=== PATIENT | female | born 1965 | race African-American/Black ===

== ENCOUNTER 2022-12-03 12:58 | Emergency (ER) | payer BC ==
[~2022-12-03] VITALS: Ht 165.1 cm; Wt 82.0 kg
[2022-12-03 14:48] LABS: CHLORIDE 98 mEq/L (98-107)
[2022-12-03 14:51] LABS: BASOPHILS % 0.5 % (0.0-2.0); EOSINOPHILS % 1.2 % (0.0-5.0); HEMATOCRIT. 37.7 % (36.0-48.0); HEMOGLOBIN. 13.2 g/dL (12.0-16.0); LYMPHOCYTES % 14.7 % (20.0-50.0); MEAN CORPUSCULAR VOLUME 94.7 fL (81.0-99.0); MONOCYTES % 8.2 % (2.0-8.0); NEUTROPHILS % 75.4 % (40.0-76.0); PLATELET 278 x1000/uL (130-400); RED BLOOD CELL COUNT 3.98 mill/uL (4.2-5.4); RED CELL DISTRIBUTION WIDTH 14.4 % (11.6-14.6)
[2022-12-03 14:56] LABS: INR 1.3; PROTHROMBIN TIME 14.2 sec (9.6-11.0)
[2022-12-03 15:00] LABS: ETHANOL BLOOD < 10 mg/dL
[2022-12-03 22:21] LABS: CLARITY URINE TURBID (CLEAR); COLOR URINE ORANGE (YELLOW); KETONES URINE 2+ (NEGATIVE); LEUKOCYTE ESTERASE URINE 2+ (NEGATIVE); NITRITE URINE POSITIVE (NEGATIVE); OCCULT BLOOD URINE 3+ (NEGATIVE); PROTEIN URINE 2+ (NEGATIVE); SPECIFIC GRAVITY URINE 1.038 (1.005-1.030)
[2022-12-03 22:31] LABS: *AMPHETAMINES SCREEN URINE NEGATIVE (NEGATIVE); *BARBITURATES SCREEN URINE NEGATIVE (NEGATIVE); *BENZODIAZEPINES SCREEN URINE NEGATIVE (NEGATIVE); *COCAINE SCREEN URINE NEGATIVE (NEGATIVE); CANNABINOID URINE SCREEN PRESUMTIVE POSITIVE (NEGATIVE); METHADONE URINE SCREEN NEGATIVE (NEGATIVE); OPIATES URINE SCREEN NEGATIVE (NEGATIVE); PHENCYCLIDINE URINE SCREEN NEGATIVE (NEGATIVE)
[2022-12-03 23:23] VITALS: BP 102/72
[2022-12-04] MEDS ORDERED: SULF1TAB48 MT (01:14)
== END 2022-12-04 01:30 | disposition home or self-care (01) ==
LOC: ER 12:58
DX: N93.8 Other specified abnormal uterine and vaginal bleeding (principal); Z00.00 Encounter for general adult medical examination without abnormal findings; I10 Essential (primary) hypertension; Z90.710 Acquired absence of both cervix and uterus
CPT/HCPCS: 36415; 74176; 80053; 80305; 80320; 81003; 83605; 85025; 87077; 87186; 99284; G0480

== ENCOUNTER 2023-11-16 12:34 | Inpatient (IN) | payer BC ==
[~2023-11-16] VITALS: Ht 165.1 cm; Wt 72.6 kg
[~2023-11-16 12:34] MED LIST: ACET-2708 MT; AMOX1TAB16 MT; SULF1TAB48 MT
[2023-11-16] MEDS: SODIUM CHLORIDE 0.9% 1000ML BAG (SEPSIS BOLUS) IV ONE (16:29)
[2023-11-16] MEDS: VANCOMYCIN 1G PREMIX 200 ML IV SCH (16:29)
[2023-11-16 16:55] LABS: BASOPHILS % 0.6 % (0.0-2.0); EOSINOPHILS % 3.7 % (0.0-5.0); HEMATOCRIT. 31.5 % (36.0-48.0); HEMOGLOBIN. 10.4 g/dL (12.0-16.0); LYMPHOCYTES % 17.2 % (20.0-50.0); MEAN CORPUSCULAR HGB CONC 32.9 g/dL (31.0-37.0); MEAN CORPUSCULAR VOLUME 94.3 fL (81.0-99.0); MEAN PLATELET VOLUME 8.1 fl (7.4-10.4); MONOCYTES % 8.2 % (2.0-8.0); NEUTROPHILS % 70.3 % (40.0-76.0); PLATELET 329 x1000/uL (130-400); RED BLOOD CELL COUNT 3.34 mill/uL (4.2-5.4); RED CELL DISTRIBUTION WIDTH 18.6 % (11.6-14.6); WHITE BLOOD COUNT 8.8 x1000/uL (4.5-11.0)
[2023-11-16 17:05] LABS: INR 1.2; PROTHROMBIN TIME 12.7 sec (9.6-11.0)
[2023-11-16 17:38] LABS: LACTIC ACID 3.7 mmol/L (0.4-2.0)
[2023-11-16 17:39] LABS: ALANINE AMINOTRANSFERASE 10 IU/L (10-49); ALBUMIN 3.5 g/dL (3.2-4.8); ASPARTATE AMINOTRANSFERASE 20 IU/L (<34); BILIRUBIN TOTAL 0.2 mg/dL (0.1-1.0); CARBON DIOXIDE 25 mEq/L (21-32); CHLORIDE 102 mEq/L (98-107); CREATININE 0.8 mg/dL (0.6-1.0); GLUCOSE 120 mg/dL (70-105); POTASSIUM 3.8 mEq/L (3.5-5.1); PROTEIN TOTAL 9.3 g/dL (6.0-8.3); SODIUM 135 mEq/L (136-145); UREA NITROGEN BLOOD 7 mg/dL (9-23)
[2023-11-16] MEDS: PIPERACILLIN/TAZO 3.375G/50ML 50 ML IV SCH (21:22)
[2023-11-17] VITALS: BP 143/77; PULSE 76; RESP 18; TEMP 97.7
[2023-11-17] MEDS ORDERED: DOCUSATE SODIUM 100MG CAPSULE PO PRN (02:30)
[2023-11-17] MEDS ORDERED: MAGNESIUM/ALUMINUM HYDROXIDE/SIMETHICONE 30ML UDC PO PRN (02:30)
[2023-11-17] MEDS ORDERED: ZOLPIDEM TARTRATE 5MG TABLET PO PRN (02:30)
[2023-11-17] MEDS: ACETAMINOPHEN 325MG TABLET PO SCH (03:46)
[2023-11-17 08:00] VITALS: BP 108/63; PULSE 75; RESP 18; TEMP 97.8
[2023-11-17] MEDS: AMOXICILLIN/POTASSIUM CLAVULANATE 875/125MG TAB PO SCH (08:56)
[2023-11-17] MEDS: ENOXAPARIN 40MG/0.4ML SYR SUBCUT SCH (08:57)
[2023-11-17] MEDS: SULFAMETHOXAZOLE/TRIMETHOPRIM 800/160MG TABLET PO SCH (08:57)
[2023-11-17 09:44] LABS: BASOPHILS % 0.3 % (0.0-2.0); EOSINOPHILS % 2.7 % (0.0-5.0); HEMOGLOBIN. 9.4 g/dL (12.0-16.0); LYMPHOCYTES % 18.9 % (20.0-50.0); MEAN CORPUSCULAR HEMOGLOBIN 31.4 pg (28.0-32.0); MEAN CORPUSCULAR HGB CONC 33.5 g/dL (31.0-37.0); MEAN CORPUSCULAR VOLUME 93.8 fL (81.0-99.0); MEAN PLATELET VOLUME 8.5 fl (7.4-10.4); MONOCYTES % 8.8 % (2.0-8.0); NEUTROPHILS % 69.3 % (40.0-76.0); PLATELET 312 x1000/uL (130-400); RED BLOOD CELL COUNT 2.98 mill/uL (4.2-5.4); RED CELL DISTRIBUTION WIDTH 18.6 % (11.6-14.6); WHITE BLOOD COUNT 9.2 x1000/uL (4.5-11.0)
[2023-11-17 09:47] LABS: CALCIUM 8.3 mg/dL (8.7-10.4); CARBON DIOXIDE 24 mEq/L (21-32); CHLORIDE 100 mEq/L (98-107); CREATININE 0.9 mg/dL (0.6-1.0); FOLIC ACID (FOLATE) SERUM 4.87 ng/mL (>5.38); GLUCOSE 186 mg/dL (70-105); IRON 77 ug/dL (50-170); POTASSIUM 3.4 mEq/L (3.5-5.1); SODIUM 133 mEq/L (136-145); THYROID STIMULATING HORMONE 1.12 uIU/mL (0.55-4.78); TOTAL IRON BINDING CAPACITY 405 ug/dl (250-425); UREA NITROGEN BLOOD 10 mg/dL (9-23); VITAMIN B12 SERUM 531 pg/mL (211-911)
[2023-11-17 12:00] VITALS: BP 117/68; PULSE 78; RESP 18; TEMP 98.3
[2023-11-17] MEDS: POTASSIUM CHLORIDE 20MEQ TABLET SR PO NR (12:45)
[2023-11-17] MEDS: FOLIC ACID 1MG TABLET PO SCH (12:45)
[2023-11-17 20:00] VITALS: BP 105/66; PULSE 80; RESP 18; TEMP 97.8
[2023-11-18] VITALS: BP 133/84; PULSE 99; RESP 18; TEMP 94.6
[2023-11-18 04:00] VITALS: BP 102/63; PULSE 76; RESP 18; TEMP 98.1
[2023-11-18 07:04] LABS: BASOPHILS % 0.3 % (0.0-2.0); HEMATOCRIT. 29.1 % (36.0-48.0); HEMOGLOBIN. 9.5 g/dL (12.0-16.0); LYMPHOCYTES % 21.5 % (20.0-50.0); MEAN CORPUSCULAR HEMOGLOBIN 31.3 pg (28.0-32.0); MEAN CORPUSCULAR HGB CONC 32.6 g/dL (31.0-37.0); MEAN PLATELET VOLUME 8.5 fl (7.4-10.4); MONOCYTES % 8.8 % (2.0-8.0); NEUTROPHILS % 66.4 % (40.0-76.0); PLATELET 350 x1000/uL (130-400); RED BLOOD CELL COUNT 3.03 mill/uL (4.2-5.4); RED CELL DISTRIBUTION WIDTH 18.3 % (11.6-14.6); WHITE BLOOD COUNT 9.6 x1000/uL (4.5-11.0)
[2023-11-18 07:10] LABS: CALCIUM 8.7 mg/dL (8.7-10.4); CARBON DIOXIDE 24 mEq/L (21-32); CHLORIDE 101 mEq/L (98-107); CREATININE 0.9 mg/dL (0.6-1.0); GLUCOSE 76 mg/dL (70-105); POTASSIUM 4.2 mEq/L (3.5-5.1); SODIUM 132 mEq/L (136-145); UREA NITROGEN BLOOD 11 mg/dL (9-23)
[2023-11-18 08:00] VITALS: BP 103/67; PULSE 82; RESP 18; TEMP 97.4
[2023-11-18 12:00] VITALS: BP 105/57; PULSE 68; RESP 18; TEMP 96.9
[2023-11-18] MEDS: SODIUM HYPOCHLORITE (0.25%) 480ML SOLUTION (HALF STRENGTH) TOP SCH (12:30)
[2023-11-18 16:00] VITALS: BP 109/60; PULSE 70; RESP 18; TEMP 96.8
[2023-11-18 20:00] VITALS: BP 111/68; PULSE 81; RESP 19; TEMP 98.4
[2023-11-18] MEDS ORDERED: NALOXONE HCL 0.4MG/ML VIAL IV PRN (22:30)
[2023-11-18] MEDS: HYDROCODONE/ACETAMINOPHEN 5/325MG TABLET PO PRN (22:31)
[2023-11-19] VITALS: BP 101/54; PULSE 75; RESP 18; TEMP 97.3
[2023-11-19 04:00] VITALS: BP 99/55; PULSE 67; RESP 18; TEMP 96.9
[2023-11-19 08:08] VITALS: BP 100/59; PULSE 64; RESP 18; TEMP 98.2
[2023-11-19] MEDS ORDERED: FOLI-43 PO (09:54)
[2023-11-19] MEDS ORDERED: SULF1TAB48 MT (09:54)
[2023-11-19 12:00] VITALS: BP 125/78; PULSE 94; RESP 18; TEMP 98
[2023-11-19 12:18] VITALS: BP 100/59; PULSE 64; TEMP 98.2; O2SAT 100
[2023-11-19] MEDS ORDERED: ACET-2708 MT (12:53)
[2023-11-19] MEDS ORDERED: IBUP-2029 MT (12:53)
== END 2023-11-19 16:56 | disposition home or self-care (01) | DRG 394 ==
LOC: ER 12:34 → 4WST 21:13 → EDBEDREQTM 21:33 → EDBEDREQSVC 21:33 → EDBEDREQ 21:33 → 6WST 11-18 19:14
PROVIDERS: ADMIT Internal Medicine Pulmonary Disease; ATTEND Internal Medicine Pulmonary Disease
DX: K60.3 Anal fistula (principal); L02.212 Cutaneous abscess of back [any part, except buttock and flank]; L02.31 Cutaneous abscess of buttock; D64.9 Anemia, unspecified; L40.9 Psoriasis, unspecified; L89.159 Pressure ulcer of sacral region, unspecified stage; I10 Essential (primary) hypertension; Z90.710 Acquired absence of both cervix and uterus
CPT/HCPCS: 36415; 71045; 80048; 80053; 82607; 82746; 83540; 83550; 83605; 84145; 84443; 85025; 93005; 99291; J1650; J2543; J3370; J7030